=== PATIENT | male | born 1930 | race Caucasian/White ===

== ENCOUNTER → 2016-04-29 | Day surgery (SDC) | payer MEDICARE, BC ==
[~2016-04-29] MED LIST: Lactated Ringers 1,000 ML IV SCH; Lactated Ringers 1,000 ML ONE; Lidocaine 1% 30 ML SDV INJECT ONE; Propofol 200 MG/20 ML SDV IV ONE; ceFAZolin 1 GM Vial IVPUSH ONE; ceFAZolin 1 GM Vial ONE
[2016-04-29 13:45] VITALS: BP 115/72
--- NOTE | 2016-04-30 07:11 | OR ---
DATE OF OPERATION: 04/29/2016 PREOPERATIVE DIAGNOSIS: SKIN LESION, LEFT SIDE OF THE FACE, SIZE OF THE LESION IS ABOUT 2 CM IN SIZE. PROCEDURE: EXCISION OF SKIN LESION, LEFT SIDE OF THE FACE. ANESTHESIA: Xylocaine 1% and IV sedation. DESCRIPTION OF PROCEDURE: After the patient's skin lesion on the face was prepped with Betadine, the patient was given sterile drapes. Xylocaine 1% was infiltrated all around the skin lesion. Skin lesion was excised out and taken as specimen. Then all the bleeding points were cauterized. Skin was approximated with 4-0 nylon interrupted sutures. The patient was given sterile dressing. He tolerated the procedure well and left the operating room in satisfactory condition. BETH/JOSIANE /[id number]
== END ==
LOC: CC.SDS 10:57
PROVIDERS: ATTEND Surgery
DX: L73.8 Other specified follicular disorders (principal); L90.5 Scar conditions and fibrosis of skin; E78.5 Hyperlipidemia, unspecified; Z79.82 Long term (current) use of aspirin; Z79.899 Other long term (current) drug therapy; Z90.49 Acquired absence of other specified parts of digestive tract
CPT/HCPCS: 00300; 11442; 88305; J0690; J2704; J7120